=== PATIENT | male | born 1990 | race Caucasian/White ===

== ENCOUNTER 2017-02-15 16:26 | Emergency (ER) | payer BC, OTHER ==
[~2017-02-15] VITALS: Ht 193 cm; Wt 97.5 kg
[2017-02-15 17:00] VITALS: BP 97/60
[2017-02-15] MEDS ORDERED: NEOMYCIN-BACITRACIN-POLYM UNITDOSE PKG TOP OINT TOP ONE (17:30)
== END 2017-02-15 18:02 | disposition home or self-care (01) ==
LOC: ER 16:26
DX: S91.311A Laceration without foreign body, right foot, initial encounter (principal); W26.0XXA Contact with knife, initial encounter; Y93.89 Activity, other specified; Y99.8 Other external cause status; Y92.89 Other specified places as the place of occurrence of the external cause
CPT/HCPCS: 12002